=== PATIENT | male | born 1990 | race Caucasian/White ===

== ENCOUNTER 2022-01-09 13:44 | Emergency (ER) | payer SELFPAY ==
--- NOTE | 2022-01-09 14:08 | NUR ---
PATIENT LEFT WITHOUT BEING SEEN BY [facility]. NO FURTHER CARE PROVIDED FOR PATIENT.
[2022-01-09 14:35] VITALS: BP 147/89
== END 2022-01-09 14:08 | disposition left against medical advice (07) ==
LOC: MED 13:44
DX: J34.89 Other specified disorders of nose and nasal sinuses (principal); Z53.21 Procedure and treatment not carried out due to patient leaving prior to being seen by health care provider